=== PATIENT | female | born 1950 | race Caucasian/White ===

== ENCOUNTER 2017-04-11 08:57 | Day surgery (SDC) | payer OTHER ==
[~2017-04-11] VITALS: Ht 149.9 cm; Wt 59.0 kg
[~2017-04-11 08:57] MED LIST: MIRAPEX1.5 MG PO; PRINIVIL20 MG PO; SINEQUAN10 MG PO
[2017-04-11 09:16] VITALS: BP 125/60
[2017-04-11 09:25] VITALS: BP 125/60
[2017-04-11 17:29] VITALS: BP 146/68
[2017-04-11 18:59] VITALS: BP 124/60
[2017-04-12 00:38] VITALS: BP 95/49
[2017-04-12 04:23] VITALS: BP 97/55
[2017-04-12 06:20] LABS: HEMOGLOBIN 12.5 G/DL (11.9-15.5); MCHC 32.9 G/DL (30.0-36.0); MCV 91.1 FL (83-99); PLATELET COUNT 192 K/uL (156-360); RBC DIS.WIDTH-CV 12.4 % (11.8-14.6); RBC DIS.WIDTH-SD 40.9 % (39-53); RED BLOOD COUNT 4.17 M/uL (3.80-5.20); WHITE BLOOD COUNT 9.6 K/uL (4.1-10.2)
[2017-04-12 07:13] VITALS: BP 111/52
[2017-04-12] MEDS ORDERED: ENDOCET 5-3251 EACH PO (08:58)
[2017-04-12 11:45] VITALS: BP 106/53
== END 2017-04-12 16:37 | disposition home or self-care (01) ==
LOC: SDC 08:57 → RAD 11:00 → SDC 11:00 → 2SOUTH 15:09 → 2EAST 15:09 → ENRESERV 15:11 → 2EAST 17:28
PROVIDERS: Surgery
PROC: 0HTU0ZZ Resection of Left Breast, Open Approach (ICD-10-PCS; principal; 2017-04-11)
PROC: 07B60ZX Excision of Left Axillary Lymphatic, Open Approach, Diagnostic (ICD-10-PCS; principal; 2017-04-11)
DX: C50.112 Malignant neoplasm of central portion of left female breast (principal); K21.9 Gastro-esophageal reflux disease without esophagitis; I10 Essential (primary) hypertension; F43.20 Adjustment disorder, unspecified; F41.0 Panic disorder [episodic paroxysmal anxiety]; F25.1 Schizoaffective disorder, depressive type; G20 Parkinson's disease; Z17.0 Estrogen receptor positive status [ER+]
CPT/HCPCS: 78195; 78999; 85027; 88305; 88307; A9541; G0378; J0131; J0690; J1100; J2250; J2405; J2795; J3010; J3480; S0020